=== PATIENT | male | born 1950 | race Caucasian/White ===

== ENCOUNTER 2020-10-13 10:15 | Outpatient (CLI) | payer BC, SELFPAY ==
--- NOTE | ~2020-10-13 | CT_ITS ---
EXAMINATION: CT lung screening DATE: 10/13/2020 10:47 INDICATION: Z87.891 - Personal history of nicotine dependence TECHNIQUE: Computed tomography (CT) of the chest was performed without intravenous contrast. Addition al 3D reconstructions utilizing coronal maximum intensity projection (MIP) were performed. Automated exposure control and iterative reconstruction technique were employed. The dose-length product was 14 2.09 mGy-cm. COMPARISON: 12/12/2017 FINDINGS: Mild emphysema. No significant interval change in peripheral and lower lung predominant irregular sep iain line thickening, mild groundglass opacity and peripheral honeycombing consistent with chronic int erstitial lung disease. No interval change in a 9 mm left upper lobe nodule with smooth margins. Kalpesh tional unchanged 4 mm nodule at the right apex. Unchanged 4 mm triangular nodule along the right baldomero r fissure consistent with an intrafissural lymph node. Calcified nodule consistent with old granuloma tous disease at the medial right lung base. No new or enlarging pulmonary nodules identified. Heart s ize is normal. Atherosclerotic coronary artery calcific location. No pericardial effusion. Fusiform a scending thoracic aortic aneurysm measuring 4.4 cm in maximal diameter. No pathologically enlarged th oracic lymphadenopathy. No significant change in a likely benign 11 mm left thyroid nodule. Cholelith iasis. Mild to moderate thoracic spondylosis with multiple Schmorl's nodes throughout the thoracic an d upper lumbar spine. IMPRESSION: 1. . Lung-RADS category 2: Benign appearance or behavior. Continue annual screening with noncontrast low-dose chest CT in 12 months. 2. Mild emphysema and relatively stable appearance of peripheral and lower lung predominant chronic i nterstitial lung disease with either usual interstitial pneumonia (UIP) pattern or less likely nonspe cific interstitial pneumonia (NSIP) pattern. 3. Fusiform ascending thoracic aortic aneurysm measuring up to 4.4 cm in maximal diameter. 4. Cholelithiasis. Reviewed, dictated and finalized at location [facility]. IMPRESSION: 1. . Lung-RADS category 2: Benign appearance or behavior. Continue annual scree cecilia with noncontrast low-dose chest CT in 12 months. 2. Mild emphysema and relatively stable appearance of peripheral and lower lung predominant chronic interstitial lung disease with either usual interstitial p neumonia (UIP) pattern or less likely nonspecific interstitial pneumonia (NSIP) pattern. 3. Fusiform ascending thoracic aortic aneurysm measuring up to 4.4 cm in meet l diameter. 4. Cholelithiasis.
== END 2020-10-13 10:16 | disposition home or self-care (01) ==
PROVIDERS: PCP Internal Medicine; Visit Provider Nurse Practitioner
DX: Z87.891 Personal history of nicotine dependence (principal); K80.20 Calculus of gallbladder without cholecystitis without obstruction; I71.4 Abdominal aortic aneurysm, without rupture; J43.9 Emphysema, unspecified
CPT/HCPCS: 71271

== ENCOUNTER 2020-11-07 12:38 | Outpatient (CLI) | payer BC, SELFPAY ==
--- NOTE | 2020-11-07 12:54 | ECHO_ITS ---
Patient Info Name: Jovon Cardoza Age: 69 years : 1950 Gender: Male Ht: 76 in Wt: 200 lbs BSA: 2.21 m2 HR: 64 bpm BP: 128 / 87 mmHg Heart Rhythm: Sinus Rhythm Exam Date: 11/07/2020 1:16 PM Exam Location: [facility] Patient Status: Outpatient Admit Date: 11/07/2020 Staff Ordering Physician: Rosibel Koo NP Bridge Carpenter: Gilma Billings RDCS Attending Provider: Rosibel Koo NP Referring Physician: Hayes CHONG; Exam Type: CA echo doppler color flow Study Info Indications I71.2 - Thoracic aortic aneurysm, without rupture Complete two-dimensional, color flow and Doppler transthoracic echocardiogram is performed. Summary 1. Complete two-dimensional, color flow and Doppler transthoracic echocardiogram is performed. 2. Left ventricular chamber dimension is normal. 3. Left ventricular systolic function is normal, estimated at 55-60%. 4. The left ventricular diastolic function is grade I diastolic dysfunction. 5. E/e' 7 is not elevated. 6. There is mild aortic valve sclerosis. 7. There is trace tricuspid valve regurgitation. 8. No pulmonary hypertension, estimated pulmonary arterial systolic pressure is 24 mmHg. 9. There is trace pulmonic regurgitation. 10. The aortic root size at the sinus of Valsalva is mildly dilated at 4.4 cm. Left Ventricle E/e' 7 is not elevated. Left ventricular chamber dimension is normal. Left ventricular systolic function is normal, estimated at 55-60%. The left ventricular diastolic function is grade I diastolic dysfunction. Right Ventricle Right ventricular systolic function is normal and with normal TAPSE 2.7 cm. Right ventricular chamber dimension is normal. Left Atria Left atrial chamber dimension is normal. Right Atria Right atrial chamber dimension is normal. Aortic Valve The aortic valve is trileaflet. There is mild aortic valve sclerosis. There is no aortic valve stenosis. There is no aortic valve regurgitation. Pulmonic Valve There is trace pulmonic regurgitation. Mitral Valve There is no mitral valve stenosis. There is no mitral valve regurgitation. Tricuspid Valve There is trace tricuspid valve regurgitation. No pulmonary hypertension, estimated pulmonary arterial systolic pressure is 24 mmHg. Pericardium/Pleural There is no pericardial effusion. Inferior Vena Cava Normal inferior vena cava with >50% collapse upon inspiration consistent with normal right atrial pressure, 5 mmHg. Aorta The aortic root size at the sinus of Valsalva is mildly dilated at 4.4 cm. Left Ventricular Outflow Tract Name Value Normal LVOT 2D LVOT Diameter 2.7 cm LVOT Doppler LVOT Peak Gradient 4 mmHg LVOT Mean Gradient 2 mmHg LVOT VTI 23 cm LVOT VTI/AV VTI Ratio 1.0 LVOT Stroke Volume 137 ml LVOT CO 7.3 l/min LVOT CI 3.3 l/min/m2 Pulmonic Valve
== END 2020-11-07 12:39 | disposition home or self-care (01) ==
PROVIDERS: PCP Internal Medicine; Visit Provider Nurse Practitioner
DX: I71.2 Thoracic aortic aneurysm, without rupture (principal); I70.0 Atherosclerosis of aorta
CPT/HCPCS: 93306

== ENCOUNTER 2020-11-25 02:56 | Day surgery (SDC) | payer BC, SELFPAY ==
[2020-11-10 14:30] VITALS: BMI 24.4
--- NOTE | 2020-11-24 13:55 | PM.HPGS ---
History of Present Illness History of Present Illness Consent: Risks, benefits, and alternatives have been discussed and questions answered. Patient agrees to proceed with procedure. Chief complaint: neoplasm screening Narrative: Jovon Cardoza is a 69 year old male Referred for colon cancer screening . Review of Systems Review of Systems: All systems reviewed & are unremarkable except as noted in HPI and below PMFSH Past Medical History Medical History Cholelithiasis Thoracic aortic aneurysm without rupture Tobacco use disorder Surgical History Surgical History Cataract extraction status, left eye (~06/16/18) History of bunionectomy Postsurgical arthrodesis status (~10/03/17) 1st Metatarsal phalangeal joint on right foot Family History Family History Mother COPD (chronic obstructive pulmonary disease) Sibling COPD (chronic obstructive pulmonary disease) Grandparent Asthma Diabetes mellitus Cerebrovascular accident Father , 75 Lung cancer Grandparent , 69 Parkinsons disease Cerebrovascular accident Grandparent , 74 PVD (peripheral vascular disease) Dementia High risk of cardiac event Diabetes mellitus Mother , 59 COPD (chronic obstructive pulmonary disease) Chronic bronchitis Respiratory failure Grandparent Diabetes mellitus, Onset Age: 74 Family history of cardiovascular disease, Onset Age: 74 Family history of Parkinson's disease, Onset Age: 69 Family history of dementia, Onset Age: 74 Mother Family history of chronic obstructive pulmonary disease, Onset Age: 59 Father Family history of lung cancer, Onset Age: 75 Social History Social History Social History: Pt states that he smokes cigars and may have 2-3 a week Smoking packs per day: 1 Smoking cigarettes per day: 20.0 Years smoked: 50 Smoking pack-years: 50.00 Smoking status: Former smoker Tobacco type: cigarettes and cigars Second hand tobacco smoke exposure: No Smoking end date: 02/18/15 Alcohol intake: current Drinks per week: 4 Alcohol use details: beer Substance use: never Living arrangements: with family Additional living arrangements comments: Gender identity (if verbalized by the patient): Male Sexual Orientation (if Verbalized by the Patient): Straight or Heterosexual Spiritual care concerns: No Agree to blood products: Yes Meds Home Medications and Allergies Home Medications Medication Instructions Recorded Confirmed Type fluticasone propionate 50 1 spray INTRANASAL DAILY 09/21/20 11/25/20 History mcg/actuation nasal spray,suspension atorvastatin 10 mg tablet 10 mg PO QHS #90 tablet 10/18/20 11/25/20 Rx Allergies Allergy/AdvReac Type Severity Reaction Status Date / Time tetracycline Allergy Unknown Unknown Verified 11/25/20 10:43 Exam Const: General: alert Orientation/consciousness: patient oriented x3 Resp: Auscultation: clear to auscultation bilaterally Cardio: Rhythm: regular rhythm GI: GI Palp: Yes Soft to palpation and No Tenderness to palpation present (GI) Neuro: General: patient oriented x3 Assessment and Plan Assessment and plan (1) Screening for colon cancer: Code(s): Z12.11 - Encounter for screening for malignant neoplasm of colon Status: Acute Assessment and Plan: Colonoscopy with possible biopsy or polypectomy or cautery or injection of substances.
[2020-11-25 10:45] VITALS: BP 136/72; PULSE 66; RESP 16; TEMP 36.2; O2SAT 97
[2020-11-25] MEDS: LACTATED RINGERS 1,000 ML 150 ML IV CONT (10:50)
--- NOTE | 2020-11-25 11:04 | WPDANESEPPF ---
Anes - Initial Pre Proc Eval Procedure: Operation Date: 11/25/20 11:30 Proposed Procedures p Screening Colonoscopy - Loyd Robertson MD Date/Time: 11/25/20 11:04 Surgeon: Loyd Robertson MD Pre Op Diagnosis: neoplasm screening Patient Data Age: 69 Gender: M Height: 1.93 m Weight: 87.5 kg Last Vital Signs Temp 97.2 F L 11/25/20 10:45 Pulse 66 11/25/20 10:45 Resp 16 11/25/20 10:45 BP 136/72 11/25/20 10:45 Pulse Ox 97 11/25/20 10:45 Allergies Allergy/AdvReac Type Severity Reaction Status Date / Time tetracycline Allergy Unknown Unknown Verified 11/25/20 10:43 Home Medications Medication Instructions Recorded Confirmed Type fluticasone propionate 50 1 spray INTRANASAL DAILY 09/21/20 11/25/20 History mcg/actuation nasal spray,suspension atorvastatin 10 mg tablet 10 mg PO QHS #90 tablet 10/18/20 11/25/20 Rx Patient hx anesthesia problems: none Family hx anesthesia problems: none Results Review: All pre-operative results and documents have been reviewed as part of the pre-operative evaluation. [facility] Past Medical History Medical History (Updated 10/14/20 @ 12:15 by Rosibel Koo NP) Cholelithiasis Thoracic aortic aneurysm without rupture Tobacco use disorder Surgical History Surgical History Cataract extraction status, left eye (~06/16/18) History of bunionectomy Postsurgical arthrodesis status (~10/03/17) 1st Metatarsal phalangeal joint on right foot Family History Family History Mother COPD (chronic obstructive pulmonary disease) Sibling COPD (chronic obstructive pulmonary disease) Grandparent Asthma Diabetes mellitus Cerebrovascular accident Father , 75 Lung cancer Grandparent , 69 Parkinsons disease Cerebrovascular accident Grandparent , 74 PVD (peripheral vascular disease) Dementia High risk of cardiac event Diabetes mellitus Mother , 59 COPD (chronic obstructive pulmonary disease) Chronic bronchitis Respiratory failure Grandparent Diabetes mellitus, Onset Age: 74 Family history of cardiovascular disease, Onset Age: 74 Family history of Parkinson's disease, Onset Age: 69 Family history of dementia, Onset Age: 74 Mother Family history of chronic obstructive pulmonary disease, Onset Age: 59 Father Family history of lung cancer, Onset Age: 75 Social History Social History Social History: Pt states that he smokes cigars and may have 2-3 a week Smoking packs per day: 1 Smoking cigarettes per day: 20.0 Years smoked: 50 Smoking pack-years: 50.00 Smoking status: Former smoker Tobacco type: cigarettes and cigars Second hand tobacco smoke exposure: No Smoking end date: 02/18/15 Alcohol intake: current Drinks per week: 4 Alcohol use details: beer Substance use: never Living arrangements: with family Additional living arrangements comments: Gender identity (if verbalized by the patient): Male Sexual Orientation (if Verbalized by the Patient): Straight or Heterosexual Spiritual care concerns: No Agree to blood products: Yes Anes - Eval Final PreProcedure Day of Procedure 11/25/20 11:04 Patient weight: normal Heart: regular rate and rhythm Lungs: clear to auscultation Airway: Mallampati scale class II Neurological: alert and oriented Last oral intake: >/= 8 hours ASA classification: III Emergent: no Anesthetic plan: proceed Anesthesia type and monitoring: general GIVS and standard monitoring Results Review: All pre-operative results and documents have been reviewed as part of the pre-operative evaluation. Informed Consent: The patient's anesthetic plan and its attendant risks and benefits were discussed with the patient/family/POA. Questions were
[2020-11-25] MEDS: SIMETHICONE ORAL SUSPENSION 20 MG/0.3 ML 30 ML BOTTLE 0.6 ML IRRIGATION (11:48)
[2020-11-25 11:58] VITALS: BP 101/66; PULSE 69; RESP 18; O2SAT 97
[2020-11-25 12:08] VITALS: BP 97/60; PULSE 67; RESP 13; O2SAT 99
[2020-11-25 12:18] VITALS: BP 114/71; PULSE 60; RESP 22; O2SAT 98
[2020-11-25 12:28] VITALS: BP 119/80; PULSE 56; RESP 17; O2SAT 98
== END 2020-11-25 13:00 | disposition home or self-care (01) ==
PROVIDERS: PCP Internal Medicine; Visit Provider Internal Medicine Gastroenterology
PROC: 0DJD8ZZ Inspection of Lower Intestinal Tract, Via Natural or Artificial Opening Endoscopic (ICD-10-PCS; CPT 45378; principal; 2020-11-25 11:30)
DX: Z12.11 Encounter for screening for malignant neoplasm of colon (principal); K57.30 Diverticulosis of large intestine without perforation or abscess without bleeding; K63.5 Polyp of colon; I71.2 Thoracic aortic aneurysm, without rupture; Z87.891 Personal history of nicotine dependence
CPT/HCPCS: 45380; 88305; J2704; J7120

== ENCOUNTER 2021-05-03 14:43 | Outpatient (CLI) | payer BC, SELFPAY ==
--- NOTE | ~2021-05-03 | CT_ITS ---
EXAMINATION: CT diagnostic chest wo con DATE: 05/03/2021 14:57 INDICATION: Thoracic aortic aneurysm TECHNIQUE: Computed tomography (CT) of the chest was performed without intravenous contrast. Automate d exposure control and iterative reconstruction technique were employed. Exam dose: 336.62 mGy-cm to iain exam DLP. COMPARISON: 10/13/2020 CT lung screening FINDINGS: Approximately 13.9 mm lower pole left thyroid mass The ascending thoracic aorta measures up to 4.2 cm diameter. The mid thoracic aortic arch measures 30 .6 mm, the descending thoracic aorta approximately 25.6 mm. Normal heart size. Coronary artery calcifications. No pericardial or pleural effusion. No hilar or mediastinal mass lesion or lymphadenopathy. 10 mm left upper lobe mass (series 4 image 65), not significantly changed since 12/12/2017, consisten t with benign process. Calcified right right lower lobe pulmonary granuloma.. There is chronic predominantly peripheral and particularly lower lung septal soft tissue thickening a nd honeycombing, likely due to usual interstitial pneumonia or interstitial fibrosis. There are multiple small stones in the dependent aspect of the gallbladder. Normal morphology of the adrenal glands. Moderate degenerative disc disease of the lower cervical spine. Degenerative spurring of the thoracic spine. IMPRESSION: Stable 10 mm left upper lobe nodule since 2018, consistent with benign process Peripheral and particularly lower lung septal soft tissue thickening and honeycombing, likely due to usual interstitial pneumonia, relatively stable since 10/13/2020 Cholelithiasis Reviewed, dictated and finalized at [facility]. Reviewed, dictated and finalized at location [facility]. IMPRESSION: Stable 10 mm left upper lobe nodule since 2018, consistent with be nign process Peripheral and particularly lower lung septal soft tissue thickening and honeyc ombing, likely due to usual interstitial pneumonia, relatively stable since 09/19 Cholelithiasis
== END 2021-05-03 14:44 | disposition home or self-care (01) ==
LOC: ANHIMG 14:45
PROVIDERS: PCP Internal Medicine; Visit Provider Nurse Practitioner
DX: I71.2 Thoracic aortic aneurysm, without rupture (principal); K80.20 Calculus of gallbladder without cholecystitis without obstruction; I25.10 Atherosclerotic heart disease of native coronary artery without angina pectoris; M47.813 Spondylosis without myelopathy or radiculopathy, cervicothoracic region
CPT/HCPCS: 71250

== ENCOUNTER 2022-05-08 10:13 | Outpatient (CLI) | payer BC, SELFPAY ==
--- NOTE | ~2022-05-08 | CT_ITS ---
CT Scan of the Chest without Contrast: Clinical Indication: Smoking history, lung cancer screening Technique: Contiguous sections were acquired throughout the chest without intravenous contrast. Dose reduction technique was used on this scan by utilizing automated exposure control and iterative recon struction technique. The dose-length product (DLP) was 152.00 mGy-cm. COMPARISON: 05/03/2021, 10/13/2020 Findings: There is no evidence of any significant mediastinal, hilar or axillary lymphadenopathy. Coronary jourdan ry calcifications are present. There is no evidence of pleural or pericardial effusion. There is bibasilar predominant, peripheral chronic interstitial disease, with subpleural reticulation , interstitial thickening, and focal areas of honeycomb formation. Stable 8 mm noncalcified left uppe r lobe pulmonary nodule noted. Images through the upper abdomen reveal small calcified gallstones. Impression: Stable 8 mm noncalcified left upper lobe pulmonary nodule. Stable chronic pulmonary interstitial disease, as detailed above. Cholelithiasis. Reviewed, dictated and finalized at [facility]. Impression: Stable 8 mm noncalcified left upper lobe pulmonary nodule. Stable chronic pulmonary interstitial disease, as detailed above. Cholelithiasis.
== END 2022-05-08 10:14 | disposition home or self-care (01) ==
PROVIDERS: PCP Internal Medicine; Visit Provider Nurse Practitioner
DX: Z12.2 Encounter for screening for malignant neoplasm of respiratory organs (principal); Z87.891 Personal history of nicotine dependence; R91.8 Other nonspecific abnormal finding of lung field; J84.89 Other specified interstitial pulmonary diseases; K80.20 Calculus of gallbladder without cholecystitis without obstruction
CPT/HCPCS: 71271

== ENCOUNTER 2022-07-28 14:42 | Emergency (ER) | payer BC, SELFPAY ==
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
--- NOTE | 2022-07-28 15:26 | PC.NURSE ---
refusing transfer by EMS. PT is A/O x 4 and voices positive understanding to all risks of going POV. 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
[2022-07-28] MEDS: TETANUS,DIPHTHERIA,AC PERTUSSIS ADULT (0.5 ML) BOOSTRIX IM (15:44)
== END 2022-07-28 15:50 | disposition short-term general hospital (02) ==
PROVIDERS: Emergency Provider Emergency Medicine; PCP Internal Medicine
DX: S71.141A Puncture wound with foreign body, right thigh, initial encounter (principal); W32.0XXA Accidental handgun discharge, initial encounter; Z23 Encounter for immunization; Z72.0 Tobacco use
CPT/HCPCS: 73552; 90471; 90715; 99283